=== PATIENT | female | born 1955 | race Two or more races ===

== ENCOUNTER 2024-01-19 20:45 | Emergency (ER) | payer MEDICARE, OTHER ==
[~2024-01-19] VITALS: Ht 170.2 cm; Wt 99.8 kg
[2024-01-19] MEDS ORDERED: IBUPROFEN 600 MG TABLET ONE (21:22)
[2024-01-19] MEDS: ACETAMINOPHEN ES 500 MG TABLET PO ONE (21:22)
[2024-01-19] MEDS ORDERED: ACETAMINOPHEN ES 500 MG TABLET ONE (21:22)
[2024-01-19] MEDS: IBUPROFEN 600 MG TABLET PO ONE (21:22)
[2024-01-19] MEDS: LORAZEPAM 4 MG/ML VIAL IV ONE (22:29)
[2024-01-20 08:55] VITALS: BP 130/80; TEMP 98; O2SAT 99
== END 2024-01-20 08:58 ==
LOC: ER 20:47
DX: U07.1 COVID-19 (principal)
CPT/HCPCS: J2060